=== PATIENT | male | born 1985 | race American Indian/Alaskan Native ===

== ENCOUNTER 2021-08-03 21:36 | Emergency (ER) | payer SELFPAY ==
[2021-08-03] MEDS ORDERED: LACTATED RINGERS 1,000 ML IV ONE (21:46)
[2021-08-03] MEDS ORDERED: MORPHINE 4 MG/1 ML INJ IV ONE (21:48)
[2021-08-03] MEDS ORDERED: ONDANSETRON 4 MG/2 ML INJ IV ONE ×2 (21:48→23:40)
[2021-08-03] MEDS ORDERED: SODIUM CHLORIDE 0.9% 1000 ML 1,000 ML IV ONE (21:53)
[2021-08-03] MEDS ORDERED: TETANUS,DIPH,PERTUSS(ACELL) VACCINE 0.5 ML SYRINGE IM ONE (21:59)
[2021-08-03] MEDS ORDERED: LIDOCAINE (1%) 10 MG/1 ML VIAL 20 ML MDV INFILTRATI ONE (22:00)
[2021-08-03 22:12] LABS: Alanine Aminotransferase 18 units/L (7-56); Albumin 4.9 g/dL (3.9-5); BUN/Creatinine Ratio 10; Blood Urea Nitrogen 11 mg/dL (9-20); Calcium 9.5 mg/dL (8.4-10.2); Hemolysis Index 4
[2021-08-03 22:22] LABS: Hematocrit 36.8 % (35.5-45.6); Hemoglobin 12.4 gm/dl (11.8-15.2); Mean Corpuscular HGB Conc 34 % (32-34); Mean Corpuscular Volume 94 fl (84-94); Platelet Count 240 K/mm3 (140-440); Red Blood Count 3.92 M/mm3 (3.65-5.03); Red Cell Distribution Width 14.3 % (13.2-15.2)
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
[2021-08-03 23:07] LABS: Basophils % (Manual) 0 % (0.0-1.8); Total Cells Counted 100
[2021-08-03 23:07] LABS: Free T4 (Free Thyroxine) 1.16 ng/dL (0.76-1.46)
[2021-08-03 23:12] LABS: Platelet Estimate Consistent w Auto; RBC Morphology Normal
[2021-08-03] MEDS ORDERED: HYDROmorphone 1 MG/1 ML INJ IV ONE (23:40)
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
[2021-08-04 02:20] VITALS: BP 116/66
== END 2021-08-04 02:18 ==
LOC: ED 21:36
DX: S71.132A Puncture wound without foreign body, left thigh, initial encounter (principal); S31.33XA Puncture wound without foreign body of scrotum and testes, initial encounter; Z79.899 Other long term (current) drug therapy; W34.09XA Accidental discharge from other specified firearms, initial encounter; Y93.89 Activity, other specified; Y92.89 Other specified places as the place of occurrence of the external cause; Y99.8 Other external cause status
CPT/HCPCS: 36415; 72193; 73552; 80053; 84439; 84443; 85007; 85025; 86850; 86900; 86901; 90471; 90715; 93975; 96361; 96374; 96375; 96376; 99291; J1170; J2270; J2405; J7030; J7120; Q9967; 99285